=== PATIENT | female | born 1950 | race Caucasian/White ===

== ENCOUNTER → 2019-06-07 | Outpatient (CLI) | payer OTHER, BC | LOC: SJCVC 14:20 | DX: R94.31 Abnormal electrocardiogram [ECG] [EKG] (principal); R07.9 Chest pain, unspecified; R06.02 Shortness of breath; I10 Essential (primary) hypertension; R53.83 Other fatigue ==

== ENCOUNTER → 2019-06-08 | Outpatient (CLI) | payer OTHER, BC | LOC: SJCVCIMAG 12:44 | DX: R07.9 Chest pain, unspecified (principal); R06.02 Shortness of breath; I10 Essential (primary) hypertension; R00.2 Palpitations; R42 Dizziness and giddiness ==